=== PATIENT | female | born 1950 | race Caucasian/White ===

== ENCOUNTER 2018-07-05 10:56 | Emergency (ER) | payer MEDICARE, OTHER ==
[2018-07-05] MEDS ORDERED: SODIUM CHLORIDE 0.9% 1000ML 1,000 ML IV ONE (11:12)
[2018-07-05] MEDS ORDERED: ONDANSETRON HCL 4 MG/2 ML VIAL ONE (11:27)
[2018-07-05 11:39] LABS: BASOPHILS % (AUTO) 0.9 % (0.0-5.0); EOSINOPHILS % (AUTO) 3.5 % (0.0-8.0); HEMATOCRIT 41.6 % (36-48); MEAN CORPUSCULAR HEMOGLOBIN 32.3 pg (27.0-33.0); MEAN CORPUSCULAR HGB CONC 33.9 g/dL (32.0-36.0); MEAN CORPUSCULAR VOLUME 95.2 fL (79-99); MONOCYTES % (AUTO) 9.6 % (3.0-13.0); PLATELET COUNT (AUTO) 197 K/uL (130-400); RED BLOOD CELL COUNT(AUTO) 4.37 MIL/uL (4.00-5.50); RED CELL DISTRIBUTION WIDTH 12.2 % (11.0-15.5); WHITE BLOOD COUNT (AUTO) 9.3 K/uL (4.8-10.8)
[2018-07-05 11:46] LABS: CREATININE 1.2 mg/dL (0.5-1.5); POTASSIUM 3.7 mmol/L (3.5-5.1)
[2018-07-05 11:50] LABS: ALBUMIN 4.1 g/dL (3.5-5.0); TOTAL PROTEIN, SERUM 7.8 g/dL (6.0-8.3)
[2018-07-05 12:29] LABS: APPEARANCE,URINE Cloudy (CLEAR); BILIRUBIN,URINE Moderate (NEGATIVE); COLOR,URINE Dark Yellow (YELLOW); GLUCOSE, URINE (UA) Negative (NEGATIVE); KETONES,URINE 15 mg/dL (NEGATIVE); LEUKOCYTE ESTERASE ,URINE Trace (NEGATIVE); NITRATE,URINE Negative (NEGATIVE); OCCULT BLOOD,URINE Negative (NEGATIVE); PH,URINE 5.5 (5.0-8.0); PROTEIN,URINE POS 1+ (NEGATIVE)
[2018-07-05] MEDS ORDERED: IOHEXOL-350 75 ML VIAL IV ONE (12:45)
[2018-07-05 13:09] LABS: BACTERIA,URINE Rare /HPF (None Seen); MUCUS,URINE Moderate LPF (None Seen); RBC,URINE 0-1 /HPF (0-1); SQUAMOUS EPITHELIAL CELL,UR Rare /HPF (0-2); WBC,URINE 0-1 /HPF (0-1)
== END 2018-07-05 15:18 | disposition home or self-care (01) ==
LOC: EDH 10:56
DX: K52.9 Noninfective gastroenteritis and colitis, unspecified (principal); E07.9 Disorder of thyroid, unspecified; I25.2 Old myocardial infarction; Z88.6 Allergy status to analgesic agent; Z87.891 Personal history of nicotine dependence
CPT/HCPCS: 36415; 74177; 80053; 81001; 83690; 85025; 96361; 96374; 99285; J2405; J7030; Q9967

== ENCOUNTER 2019-08-30 22:40 | Inpatient (IN) | payer MEDICARE ==
[2019-08-30] MEDS ORDERED: ONDANSETRON HCL 4 MG/2 ML VIAL ONE (23:50)
[2019-08-30] MEDS ORDERED: SODIUM CHLORIDE 0.9% 1000ML 1,000 ML IV ONE (23:50)
[2019-08-30 23:59] LABS: BASOPHILS % (AUTO) 0.8 % (0.0-5.0); EOSINOPHILS % (AUTO) 1.8 % (0.0-8.0); HEMATOCRIT 40.4 % (36-48); LYMPHOCYTES % (AUTO) 20.2 % (21.0-51.0); MEAN CORPUSCULAR VOLUME 94.1 fL (79-99); MONOCYTES % (AUTO) 8.4 % (3.0-13.0); NEUTROPHILS % (AUTO) 68.8 % (40.0-77.0); PLATELET COUNT (AUTO) 251 K/uL (130-400); RED BLOOD CELL COUNT(AUTO) 4.29 MIL/uL (4.00-5.50); RED CELL DISTRIBUTION WIDTH 12.3 % (11.0-15.5); WHITE BLOOD COUNT (AUTO) 9.2 K/uL (4.8-10.8)
[2019-08-31 00:09] LABS: POTASSIUM 3.7 mmol/L (3.5-5.1)
[2019-08-31 00:13] LABS: ALBUMIN 4.1 g/dL (3.5-5.0); BILIRUBIN,TOTAL 0.6 mg/dL (0.2-1.0); TOTAL PROTEIN, SERUM 7.8 g/dL (6.0-8.3)
[2019-08-31] MEDS ORDERED: LIDOCAINE HCL 2% VISCOUS 15 ML UDCUP ONE ×2 (00:45→01:11)
[2019-08-31] MEDS ORDERED: HYDRALAZINE HCL 20 MG/ML VIAL IV PRN (01:15)
[2019-08-31] MEDS ORDERED: SODIUM CHLORIDE 0.9% 1000ML 1,000 ML IV ONE (02:34)
[2019-08-31 03:00] VITALS: BP 150/78
[2019-08-31] MEDS ORDERED: THYR15TA PO (03:29)
--- NOTE | 2019-08-31 04:10 | NUR ---
DENIED ANY ABDOMINAL PAIN PT ASSESSED. ALERT ORIENTED X 4. DENIED ANY NAUSEA NOR VOMITING NOR ANY ABDOMINAL PAIN. NRUSE FROM ED GAVE REPORT, HE MENTIONED NGT OUTPUT IN ER CONNECTED TO LOW INTERMITTENT SUCTION WAS 1900 ML GREENISH OUTPUT. MAINTAINED PT ON NGT CONNECTED TO LOW INTERMITTENT SUCTION, NO OUTPUT YET AT THIS POINT. COMFORT MEASURES RENDERED
[2019-08-31 04:54] LABS: APPEARANCE,URINE Turbid (CLEAR); BILIRUBIN,URINE Negative (NEGATIVE); COLOR,URINE Yellow (YELLOW); GLUCOSE, URINE (UA) Negative (NEGATIVE); KETONES,URINE Trace mg/dL (NEGATIVE); LEUKOCYTE ESTERASE ,URINE Trace (NEGATIVE); NITRATE,URINE Negative (NEGATIVE); OCCULT BLOOD,URINE Negative (NEGATIVE); PH,URINE 8.5 (5.0-8.0); PROTEIN,URINE POS 1+ mg/dL (NEGATIVE); UROBILINOGEN,URINE 0.2 mg/dL (0.2-1.0)
[2019-08-31 05:11] LABS: AMORPHOUS SEDIMENT,UR Many /LPF (None Seen); BACTERIA,URINE Few /HPF (None Seen); RBC,URINE None Seen /HPF (0-1); SQUAMOUS EPITHELIAL CELL,UR Moderate /HPF (0-2); WBC,URINE 0-1 /HPF (0-1)
[2019-08-31 08:00] VITALS: BP 155/77
[2019-08-31 08:18] LABS: ALBUMIN 3.5 g/dL (3.5-5.0); BILIRUBIN,TOTAL 0.7 mg/dL (0.2-1.0); CREATININE 0.8 mg/dL (0.5-1.5); POTASSIUM 3.3 mmol/L (3.5-5.1); TOTAL PROTEIN, SERUM 6.7 g/dL (6.0-8.3)
[2019-08-31] MEDS ORDERED: METRONIDAZOLE 500MG/100ML BAG 100 ML ONE (08:38)
[2019-08-31] MEDS ORDERED: METRONIDAZOLE 500 MG TABLET PO SCH (09:00)
--- NOTE | 2019-08-31 09:17 | NUR ---
DR. BLUNT PAGED RE; SBO; PENDING CALL BACK
[2019-08-31] MEDS: FAMOTIDINE/PF 20 MG/2 ML VIAL IV SCH ×2 (10:01→20:57)
[2019-08-31] MEDS: SODIUM CHLORIDE 0.9% 1000ML 1,000 ML IV SCH ×2 (10:01→21:15)
--- NOTE | 2019-08-31 10:17 | NUR ---
DC PLAN PER PATIENT, STATES SHE IS INDEPENDENT, LIVES WITH SPOUSE, NO PROVIDER, NO EQUIPMENT, AND FEELS SAFE TO RETURN HOME. Addendum: 08/31/19 at 1017 by JEREL THOMAS RN CM Amended: Links added.
[2019-08-31 12:00] VITALS: BP 143/80
--- NOTE | 2019-08-31 13:00 | NUR ---
PA; DANIEL;DR. BLUNT'S PA PAGED; PENDING CALLBACK
[2019-08-31 16:00] VITALS: BP 153/79
--- NOTE | 2019-08-31 17:09 | NUR ---
DR. BLUNT CALLED BACK ORDERS ENTERED
[2019-08-31] MEDS: ONDANSETRON HCL 4 MG/2 ML VIAL IV PRN (18:22)
[2019-08-31 20:00] VITALS: BP 153/65
[2019-08-31] MEDS ORDERED: BISACODYL 10 MG SUPP.RECT RC SCH (21:00)
[2019-09-01] VITALS: BP 155/70
[2019-09-01] MEDS: SODIUM CHLORIDE 0.9% 1000ML 1,000 ML IV SCH (02:35)
--- NOTE | 2019-09-01 03:49 | NUR ---
stools patient had 2 brown formed stools and can pass gas now.
[2019-09-01 04:00] VITALS: BP 148/74
[2019-09-01 07:50] LABS: BASOPHILS % (AUTO) 0.7 % (0.0-5.0); EOSINOPHILS % (AUTO) 1.6 % (0.0-8.0); HEMATOCRIT 39.8 % (36-48); MEAN CORPUSCULAR HGB CONC 34.3 g/dL (32.0-36.0); MEAN CORPUSCULAR VOLUME 96.1 fL (79-99); MONOCYTES % (AUTO) 6.9 % (3.0-13.0); NEUTROPHILS % (AUTO) 69.8 % (40.0-77.0); PLATELET COUNT (AUTO) 213 K/uL (130-400); RED BLOOD CELL COUNT(AUTO) 4.14 MIL/uL (4.00-5.50); RED CELL DISTRIBUTION WIDTH 11.9 % (11.0-15.5); WHITE BLOOD COUNT (AUTO) 9.4 K/uL (4.8-10.8)
[2019-09-01 08:00] VITALS: BP 170/80
--- NOTE | 2019-09-01 08:15 | NUR ---
bp 170;s pain medications given. states was also gaggin pt feeling nauseated, ng-tube adjusted, now draining, and zofran given iv.
[2019-09-01] MEDS ORDERED: BISACODYL 10 MG SUPP.RECT RC SCH (08:30)
[2019-09-01] MEDS ORDERED: LEVOTHYROXINE 100 MCG VIAL IV SCH (09:00)
[2019-09-01] MEDS: LACTATED RINGERS 1000ML 1,000 ML IV SCH ×2 (09:50→22:00)
[2019-09-01] MEDS: FAMOTIDINE/PF 20 MG/2 ML VIAL IV SCH ×2 (09:51→21:59)
[2019-09-01] MEDS: KETOROLAC TROMETHAMINE 15MG/ML IV PRN (09:55)
--- NOTE | 2019-09-01 12:08 | NUR ---
ATTEMPTED TO NOTIFY DR. BLUNT FOR OUTPUT NO CALL ANSWER PENDING CALL BACK.
[2019-09-01] MEDS ORDERED: LACTULOSE 20 GM/30 ML UDCUP PO SCH (15:15)
[2019-09-01] MEDS ORDERED: MAGNESIUM CITRATE 296 ML SOLUTION PO ONE (15:15)
[2019-09-01] MEDS ORDERED: MAGNESIUM HYDROXIDE 30 ML/UDCUP PO SCH (15:15)
[2019-09-01] MEDS: ONDANSETRON HCL 4 MG/2 ML VIAL IV PRN (15:51)
[2019-09-01 16:00] VITALS: BP 163/82
--- NOTE | 2019-09-01 16:10 | NUR ---
bp 170's, pt up walking on hallway. will reassess bp.
[2019-09-01 19:20] VITALS: BP 144/74
[2019-09-02 00:47] VITALS: BP 150/71
[2019-09-02] MEDS: KETOROLAC TROMETHAMINE 15MG/ML IV PRN (03:57)
[2019-09-02 04:20] VITALS: BP 163/78
[2019-09-02 05:26] LABS: HEMATOCRIT 35.2 % (36-48); MEAN CORPUSCULAR HEMOGLOBIN 32.9 pg (27.0-33.0); MEAN CORPUSCULAR HGB CONC 34.9 g/dL (32.0-36.0); MEAN CORPUSCULAR VOLUME 94.1 fL (79-99); PLATELET COUNT (AUTO) 232 K/uL (130-400); RED BLOOD CELL COUNT(AUTO) 3.74 MIL/uL (4.00-5.50); RED CELL DISTRIBUTION WIDTH 12.3 % (11.0-15.5); WHITE BLOOD COUNT (AUTO) 7.2 K/uL (4.8-10.8)
[2019-09-02 05:32] LABS: CREATININE 0.8 mg/dL (0.5-1.5); POTASSIUM 3.7 mmol/L (3.5-5.1)
--- NOTE | 2019-09-02 06:32 | NUR ---
MD Rounds Dr. Caruso in, seen & examined pt, updated of status, made aware pt had multiple BM, ordered to d/c NGT, done, well tolerated by the pt & to start CLD. MD advise the pt to continue with her current LOC to prevent recurrence of SBO, verbalizes understanding. Pt made aware cleared by dr. Caruso for d/c on his standpoint.
[2019-09-02] MEDS: LACTATED RINGERS 1000ML 1,000 ML IV SCH (06:34)
[2019-09-02 07:00] VITALS: BP 149/71
[2019-09-02] MEDS ORDERED: FAMOTIDINE 20MG TAB 20 MG TAB PO SCH (09:35)
[2019-09-02 11:00] VITALS: BP 155/80
--- NOTE | 2019-09-02 15:45 | NUR ---
discharged now using teach back.dc inst. given with family member present,verbalizes understanding of all inst. given rx transmitted electronically to Angela in [place] and list of local drs. given. no c/o of any discomfort today and as per dr. tijerina does not to follow up with him.
[2019-09-03] MEDS ORDERED: ARMOUR THYROID 15 MG PO SCH (06:30)
== END 2019-09-02 15:50 | disposition home or self-care (01) | DRG 390 ==
LOC: EDH 22:40 → EDHIP 08-31 01:15 → 3DH 08-31 02:39
PROVIDERS: ADMIT Internal Medicine; ATTEND Internal Medicine
PROC: 0D9670Z Drainage of Stomach with Drainage Device, Via Natural or Artificial Opening (ICD-10-PCS; principal; 2019-09-01)
DX: K56.600 Partial intestinal obstruction, unspecified as to cause (principal); E03.9 Hypothyroidism, unspecified; E86.0 Dehydration; I25.2 Old myocardial infarction; Z87.891 Personal history of nicotine dependence; Z90.710 Acquired absence of both cervix and uterus; Z88.5 Allergy status to narcotic agent; Z88.8 Allergy status to other drugs, medicaments and biological substances
CPT/HCPCS: 36415; 74018; 74176; 80048; 80053; 81001; 82550; 83690; 84484; 85025; 85027; 93005; G0378; J0360; J1885; J2405; J3490; J7030; J7120

== ENCOUNTER → 2024-02-22 | Outpatient (CLI) | payer MEDICARE ==
[~2024-02-22] MED LIST: THYR15TA PO
== END | disposition home or self-care (01) ==
LOC: SHCH 11:51
PROVIDERS: ATTEND Internal Medicine Cardiovascular Disease
DX: I65.23 Occlusion and stenosis of bilateral carotid arteries (principal)
CPT/HCPCS: 93880

== ENCOUNTER → 2024-03-14 | Outpatient (CLI) | payer MEDICARE ==
[2024-03-14 12:53] LABS: CHOLESTEROL 123 mg/dL (<200); HDL CHOLESTEROL 68 mg/dL (35-85); LDL DIRECT 57 mg/dL (0-99); TRIGLYCERIDES 43 mg/dL (30-200)
== END | disposition home or self-care (01) ==
LOC: LAB 09:18
PROVIDERS: ATTEND Internal Medicine Cardiovascular Disease
DX: E78.5 Hyperlipidemia, unspecified (principal)
CPT/HCPCS: 36415; 80061

== ENCOUNTER → 2024-12-08 | Emergency (ER) | payer MEDICARE ==
[~2024-12-08] VITALS: Ht 165.1 cm; Wt 52.2 kg
[~2024-12-08] MED LIST changes: +ATOR20TA65 PO; +GUAI100L96 PO; +LOSA25TA41 PO; +OMEP40CA21 PO; +OSEL75 PO; +THYR30TA2 PO
[2024-12-08] MEDS: ondanSETRON 4MG INJ IVP STA (12:05)
[2024-12-08] MEDS: 0.9%NACL 1000ML 1,000 ML IV STA (12:06)
[2024-12-08 12:14] LABS: BASOPHILS # (AUTO) 0.02 K/uL (0.00-0.20); BASOPHILS % (AUTO) 0.5 % (0.0-5.0); HEMATOCRIT 37.9 % (36-48); IMMATURE GRANULOCYTE ABSOLUTE 0.02 K/uL (0-1); LYMPHOCYTES % (AUTO) 23.1 % (21.0-51.0); MEAN CORPUSCULAR HEMOGLOBIN 32.2 pg (27.0-33.0); MEAN CORPUSCULAR HGB CONC 35.1 g/dL (32.0-36.0); MEAN CORPUSCULAR VOLUME 91.8 fL (79-99); MONOCYTES # (AUTO) 0.8 K/uL (0.1-1.0); MONOCYTES % (AUTO) 19.4 % (3.0-13.0); NEUTROPHILS # (AUTO) 2.3 K/uL (1.8-7.7); NEUTROPHILS % (AUTO) 56.5 % (40.0-77.0); PLATELET COUNT (AUTO) 144 K/uL (130-400); RED BLOOD CELL COUNT(AUTO) 4.13 MIL/uL (4.00-5.50); RED CELL DISTRIBUTION WIDTH 11.5 % (11.0-15.5); WHITE BLOOD COUNT (AUTO) 4.1 K/uL (4.8-10.8)
[2024-12-08 12:25] LABS: CREATININE 0.9 mg/dL (0.5-1.0); POTASSIUM 3.4 mmol/L (3.5-5.1)
[2024-12-08 12:30] LABS: ALBUMIN 3.7 g/dL (3.5-5.0); BILIRUBIN,DIRECT 0.2 mg/dL (0.0-0.3); TOTAL PROTEIN, SERUM 7.5 g/dL (6.0-8.3)
[2024-12-08 12:46] LABS: BAND NEUTROPHILS % (MANUAL) 19 % (0-2); LYMPHOCYTES % (MANUAL) 21 % (22-44); MAN.DIFF COMMENT-IMPRESSION MANUAL DIFFERENTIAL; MONOCYTES % (MANUAL) 9 % (2-9); PLATELET MORPHOLOGY COMMENT ADEQUATE; SEGMENTED NEUTROPHILS % 51 % (40-70); TOTAL CELLS COUNTED 100; WBC MORPHOLOGY CONSISTENT W/DIFF
--- NOTE | 2024-12-08 12:49 | HMCIMG ---
CHEST 1VW HISTORY: Cough COMPARISON: None FINDINGS: A frontal projection of the chest was obtained. Mild bilateral pulmonary infiltrates are seen may be related to mild pulmonary vascular congestion with possible superimposed pneumonitis. The heart is borderline enlarged. Degenerative changes are seen. No evidence of aortic calcification is seen. IMPRESSION: 1. Bilateral pulmonary infiltrates are seen suggestive of pulmonary vascular congestion with possible superimposed pneumonitis.
--- NOTE | 2024-12-08 13:09 | ERN ---
ED Note History of Present Illness Stated Complaint: NVD Chief Complaint: Nausea,Vomiting,Diarrhea Time Seen by MD: 11:27 Time Seen by Midlevel: 11:30 Dictation: 74-year-old female with a history of hypothyroidism, cholesterol and hypertension coming in with complaints of cough, fever and vomiting, right lower quadrant pain for the last couple of days. Patient complaining of dysuria. Spouse also states the patient has had altered mentation on and off for the last year however has a worsened in the last four days. Has been says she has a history of a lung disease but does not know the name of it. Allergies: Coded Allergies: acetaminophen (Verified Allergy, Unknown, 08/31/19) codeine (Verified Allergy, Unknown, 08/31/19) diazepam (Verified Allergy, Unknown, 08/31/19) Home Meds Active Scripts Guaifenesin (Robitussin Syrp) 100 Mg/5 Ml Syrp, 10 ML PO QID for cough for 3 Days, #120 ML 0 Refills Prov:RACHEL AWAD INK PRINTER 12/08/24 Oseltamivir Phosphate (Tamiflu) 75 Mg Cap, 75 MG PO BID for 5 Days, #10 CAP Prov:RACHEL AWAD INK PRINTER 12/08/24 Reported Medications Thyroid,Pork ([place] Thyroid) 15 Mg Tablet, 15 MG PO DAILY, TAB 08/31/19 Past Medical History Past Medical History: High Cholesterol, Hypertension, Hypothyroid Surgical History: Other Review of System Dictation Constitutional: Positive for fever,chills, Eyes: Negative for injury, pain,redness, and discharge ENT: Negative for injury,pain or swelling Cardiovascular: Negative for chest pain, palpitations, and edema Respiratory: Negative for shortness of breath, cough, and wheezing, Abdomen/GI: Complaining of right lower quadrant pain, nausea, vomiting, and constipation Back: Negative for injury and pain : Negative for injury, bleeding and discharge MS/Extremity: Negative for injury and deformity Skin: Negative for rash, and discoloration Neuro: Negative for headache, weakness, numbness, tingling, and seizure Psych: Negative for suicide ideation, homicidal ideation, and hallucinations Review of Systems: was completed Initial Vital Sign VS Vital Signs Date Time Temp Pulse Resp B/P (MAP) Pulse Ox O2 Delivery O2 Flow Rate FiO2 12/08/24 11:27 99.1 87 16 167/84 96 Room Air 0 12/08/24 11:27 21 Physical Exam Dictation General: awake, alert, NAD Head/Face: Normocephalic, atraumatic Eyes: PERRL, EOMI, vision at baseline ENT: oral cavity clear, TMs clear, no signs of infection Neck: Trachea midline, supple, no nuchal rigidity Cardiovascular: RRR, normal S1/S2, No MRGs, no JVD Respiratory: CTAB, no respiratory distress, No rales or wheezes Abdomen: Soft, non-tender, non-distended, normal bowel sounds, no guarding or rebound. Skin: Warm, dry, normal turgor, no rash MS/Extremity: Pulses equal, no cyanosis, neurovascular intact, FROM Neuro: COAx3, GCS 14, strength 5/5, CN 2-12 intact, normal cerebellar exam, normal gait, Psych: Normal behavior, mood, and affect normal Results (Laboratory/Radiology) Laboratory/Radiology Laboratory Tests Test 12/08/24 11:53 12/08/24 13:14 12/08/24 13:28 White Blood Count 4.1 K/uL (4.8-10.8) L Red Blood Count 4.13 MIL/uL (4.00-5.50) Hemoglobin 13.3 g/dL (12.0-16.0) Hematocrit 37.9 % (36-48) Mean Corpuscular Volume 91.8 fL (79-99) Mean Corpuscular Hemoglobin 32.2 pg (27.0-33.0) Mean Corpuscular Hemoglobin Concent 35.1 g/dL (32.0-36.0) Red Cell Distribution Width 11.5 % (11.0-15.5) Platelet Count 144 K/uL (130-400) Mean Platelet Volume 11.1 fL (7.5-10.5) H Immature Granulocyte % (Auto) 0.5 % (0-1) Neutrophils (%) (Auto) 56.5 % (40.0-77.0) Lymphocytes (%) (Auto) 23.1 % (21.0-51.0) Monocytes (%) (Auto) 19.4 % (3.0-13.0) H Eosinophils (%) (Auto) 0.0 % (0.0-8.0) Basophils (%) (Auto) 0.5 % (0.0-5.0) Neutrophils # (Auto) 2.3 K/uL (1.8-7.7) Lymphocytes # (Auto) 1.0 K/uL (1.0-4.8) Monocytes # (Auto) 0.8 K/uL (0.1-1.0) Eosinophils # (Auto) 0.00 K/uL (0.00-0.70) Basophils # (Auto) 0.02 K/uL (0.00-0.20) Absolute Immature Granulocyte (auto 0.02 K/uL (0-1) Segmented Neutrophils % 51 % (40-70) Band Neutrophils % 19 % (0-2) H Lymphocytes % (Manual) 21 % (22-44) L Monocytes % (Manual) 9 % (2-9) Nucleated Red Blood Cells 0.0 % (0.0-0.19) Differential Comment MANUAL DIFFERENTIAL White Cell Morphology Comment CONSISTENT W/DIFF Platelet Morphology Comment ADEQUATE Red Blood Cell Morphology NORMAL Sodium Level 133 mmol/L (136-145) L Potassium Level 3.4 mmol/L (3.5-5.1) L Chloride Level 94 mmol/L (101-111) L Carbon Dioxide Level 29 mmol/L (21-32) Blood Urea Nitrogen 16 mg/dL (7-18) Creatinine 0.9 mg/dL (0.5-1.0) Glomerular Filtration Rate Calc 68 mL/min (>90) Random Glucose 91 mg/dL (70-105) Total Calcium 8.3 mg/dL (8.5-10.1) L Total Bilirubin 1.0 mg/dL (0.2-1.0) Direct Bilirubin 0.2 mg/dL (0.0-0.3) Aspartate Amino Transf (AST/SGOT) 35 U/L (10-37) Alanine Aminotransferase (ALT/SGPT) 15 U/L (12-78) Alkaline Phosphatase 60 U/L (50-136) Troponin I High Sensitivity 31 ng/L (4-50) Total Protein 7.5 g/dL (6.0-8.3) Albumin 3.7 g/dL (3.5-5.0) Lipase 35 U/L (16-77) Urine Color LIGHT-YELLOW (YELLOW) Urine Appearance CLEAR (CLEAR) Urine pH 6.0 (5.0-8.0) Urine Specific [place] 1.010 (1.001-1.031) Urine Protein 30 mg/dL (NEGATIVE) H Urine Glucose (UA) NEGATIVE mg/dL (NEGATIVE) Urine Ketones 10 mg/dL (NEGATIVE) H Urine Occult Blood SMALL (NEGATIVE) H Urine Nitrate NEGATIVE (NEGATIVE) Urine Bilirubin NEGATIVE mg/dL (NEGATIVE) Urine Urobilinogen 0.2 mg/dL (0.2-1.0) Urine Leukocyte Esterase NEGATIVE Anthony/uL Urine RBC 6-10 /HPF (0-1) H Urine WBC 0-1 /HPF (0-1) Urine Squamous Epithelial Cells RARE /HPF (0-2) Urine Bacteria None /HPF (None Seen) Influenza Type A Antigen Positive For Type A Influenza Type B Antigen Negative For Type B SARS-CoV-2, RNA, NAAT NEGATIVE SARS CoV-2 Labs Reviewed?: Yes X-RAY Comment: [place] [id number] IMAGING REPORT Signed PATIENT: DALILA WATSON V MR#: [id number] : 1950 SEX: F AGE: 74 LOCATION: [facility] ORDER 1230 STATUS: [facility] REPORT#: [id number] SERVICE 1229 REASON: cough ORDERING PHYSICIAN: RACHEL AWAD NP PROCEDURE: CXR1VW - CHEST 1VW CHEST 1VW HISTORY: Cough COMPARISON: None FINDINGS: A frontal projection of the chest was obtained. Mild bilateral pulmonary infiltrates are seen may be related to mild pulmonary vascular congestion with possible superimposed pneumonitis. The heart is borderline enlarged. Degenerative changes are seen. No evidence of aortic calcification is seen. IMPRESSION: 1. Bilateral pulmonary infiltrates are seen suggestive of pulmonary vascular congestion with possible superimposed pneumonitis. DICTATED BY: FRANCK WALLIS MD DATE: 12/08/241246 ELECTRONICALLY SIGNED BY: FRANCK WALLIS MD DATE: 12/08/241248 ED Course ED Course Orders Procedure Category Date Status Time Cbc With Differential LAB 12/08/24 Complete 11:33 Basic Metabolic Panel LAB 12/08/24 Complete 11:33 Urinalysis Profile LAB 12/08/24 Complete 11:33 Lipase LAB 12/08/24 Complete 11:33 Hepatic Function Panel LAB 12/08/24 Complete 11:33 Troponin I High LAB 12/08/24 Complete Sensitivity 11:33 0.9%Nacl 1000ml (Ns PHA 12/08/24 Complete 1000ml) 11:33 Ondansetron 4mg Inj PHA 12/08/24 Complete (Zofran 4mg Inj) 11:33 Chest 1vw RAD 12/08/24 Resulted 12:29 Covid Rna Naat LAB 12/08/24 Complete 12:29 Manual Differential LAB 12/08/24 Complete 11:53 Hydralazine 20mg Inj PHA 12/08/24 Complete (Apresoline 20mg In 12:59 Influenza Type A & B, LAB 12/08/24 Complete Rapid 12:29 Ipratropium 0.5 PHA 12/08/24 Complete Mg/2.5 Ml Inh 14:26 Guaifenesin-Dm PHA 12/08/24 Complete 200/20mg 10ml 14:26 Dexamethasone 4mg/Ml PHA 12/08/24 Complete 1ml Vial (Dexametha 14:30 Current Medications Medications (Trade) Dose Ordered Sig/[place]oto Route PRN Reason Start Time Stop Time Status Last Admin Dose Admin Dexamethasone Sodium Phosphate (dexaMETHasone 4MG/ML 1ML VIAL) 4 mg ONCE STAT IV 12/08/24 14:30 12/08/24 14:32 DC 12/08/24 14:49 Guaifenesin/ Dextromethorphan (RobiTUSSin DM 200/20MG 10ML) 10 ml ONCE STAT PO 12/08/24 14:26 12/08/24 14:28 DC 12/08/24 14:50 Hydralazine HCl (APRESOLine 20MG INJ) 10 mg ONCE STAT IV 12/08/24 12:59 12/08/24 13:10 DC 12/08/24 13:17 Ipratropium [place] (AtrovENT UD) 0.5 MG ONCE STAT IH 12/08/24 14:26 12/08/24 14:28 DC 12/08/24 14:50 Ondansetron HCl (zoFRAN 4MG INJ) 4 mg ONCE STAT IVP 12/08/24 11:33 12/08/24 11:35 DC 12/08/24 12:05 Sodium Chloride 1,000 ml @ 1,000 mls/hr Q1H STAT IV 12/08/24 11:33 12/08/24 12:32 DC 12/08/24 12:06 Vital Signs Date Time Temp Pulse Resp B/P (MAP) Pulse Ox O2 Delivery O2 Flow Rate FiO2 12/08/24 14:26 98.4 72 16 174/72 98 Room Air* 0 21 12/08/24 11:27 99.1 81 16 167/84 98 Room Air* 0 21 12/08/24 11:27 99.1 87 16 167/84 96 Room Air 0 Medical Decision Making MDM MDM: 74-year-old female with a history of hypothyroidism, cholesterol and hypertension coming in with complaints of cough, fever and vomiting, right lower quadrant pain for the last couple of days. Patient complaining of dysuria. Spouse also states the patient has had altered mentation on and off for the last year however has a worsened in the last four days. Has been says she has a history of a lung disease but does not know the name of it.CBC shows no leukocytosis, no anemia, no thrombocytopenia. Chemistry shows mild hyponatremia and mild hypokalemia. Sodium is 133 and potassium is 3.4. Normal kidney function. No transaminitis, lipase within normal range. Troponin is negative. UA shows no evidence of urine tract infection. Patient has a positive for flu A. X-ray shows infiltrates suggestive of pulmonary vascular congestion with possible superimposed pneumonitis. However patient in its while states that she has a history of lung scarring this could be related. Patient received fluids running nebulizer treatment, antitussive, and steroids. Patient states feels better and we will be discharged home on Tamiflu and cough medication. Case was discussed with the ER MD. Gann for patient to be discharge history are stable not tachycardic or tachypneic or hypoxic. Differential diagnosis: Influenza, COVID more viral syndrome, pneumonia, viral gastroenteritis Rationale: Tests considered and ordered secondary to shared decision making include: Previous outside records reviewed: Old ER visits. Risk of complication and/or morbidity or mortality of patient management: None Medications-Per medication reconciliation Need for hospitalization: Patient does not meet criteria for hospitalization. Need for emergency major/minor surgery: No There are no social concerns with this patient. Prescription drug management Prescriptions will include symptomatic care Patient's prior external medical records from other ER visits were reviewed by me as indicated. Prior testing and results from previous visits were reviewed. Prior tests were taken into account with medical decision making and resource utilization, independent historian/historians were used to obtain complete medical history. I independently interpreted the test that were performed, results were reviewed by me and considered findings on radiology if ordered. Medical management and examination interpretation discussions were had by me with other qualified healthcare professionals as indicated for the patient's care. DX & DISP Disposition: Discharge Departure Impression: Primary Impression: Influenza A Condition: Stable Scripts Guaifenesin (Robitussin Syrp) 100 Mg/5 Ml Syrp 10 ML PO QID for cough for 3 Days, #120 ML 0 Refills Prov: RACHEL AWAD NP 12/08/24 Oseltamivir Phosphate (Tamiflu) 75 Mg Cap 75 MG PO BID for 5 Days, #10 CAP Prov: RACHEL AWAD INK PRINTER 12/08/24 Additional Instructions: Complaints and dose of Tamiflu, follow up with PCP in 1-2 days, return to the ER as needed. You can control fever body aches with Tylenol or Motrin over-the-co unter. Referrals: SHERIE MORRIS MD (PCP) Time of Disposition: 14:54 I have reviewed the case, and I agree with, Diagnosis and Plan RACHEL AWAD NP Dec 08, 2024 13:09
[2024-12-08] MEDS: hydrALAZine 20MG/ML VIAL IV STA (13:17)
[2024-12-08 13:26] LABS: ADD UA MICROSCOPIC YES; APPEARANCE,URINE CLEAR (CLEAR); BILIRUBIN,URINE NEGATIVE (NEGATIVE); COLOR,URINE LIGHT-YELLOW (YELLOW); GLUCOSE, URINE (UA) NEGATIVE (NEGATIVE); KETONES,URINE 10 mg/dL (NEGATIVE); LEUKOCYTE ESTERASE ,URINE NEGATIVE Leu/uL (NEGATIVE); NITRATE,URINE NEGATIVE (NEGATIVE); OCCULT BLOOD,URINE SMALL (NEGATIVE); PROTEIN,URINE 30 mg/dL (NEGATIVE); UROBILINOGEN,URINE 0.2 mg/dL (0.2-1.0)
[2024-12-08 13:28] LABS: MUCUS,URINE RARE LPF (None Seen); SQUAMOUS EPITHELIAL CELL,UR RARE /HPF (0-2); WBC,URINE 0-1 /HPF (0-1)
[2024-12-08 13:54] LABS: SARS-CoV-2, RNA, NAAT NEGATIVE SARS CoV-2 (NEGATIVE)
[2024-12-08 13:59] LABS: INFLUENZA TYPE B Negative For Type B (NEGATIVE)
[2024-12-08 14:23] LABS: INFLUENZA TYPE A Positive For Type A (NEGATIVE)
[2024-12-08 14:26] VITALS: BP 174/72; TEMP 98.4; O2SAT 98
[2024-12-08 14:36] VITALS: PULSE 77; RESP 20
[2024-12-08] MEDS: dexaMETHasone SOD PHOSPHATE 4 MG/ML 1ML VIAL IV STA (14:49)
[2024-12-08] MEDS: guaiFENesin-DM 200/20MG 10ML PO STA (14:50)
[2024-12-08] MEDS: IpraTROPium 0.5 MG/2.5 ML INH IH STA (14:50)
== END ==
LOC: EDH 11:25
DX: J10.1 Influenza due to other identified influenza virus with other respiratory manifestations (principal); E03.9 Hypothyroidism, unspecified; E78.00 Pure hypercholesterolemia, unspecified; I10 Essential (primary) hypertension; Z79.890 Hormone replacement therapy; Z88.5 Allergy status to narcotic agent; Z20.822 Contact with and (suspected) exposure to COVID-19; Z98.890 Other specified postprocedural states
CPT/HCPCS: 99284; 96374; 96375; 71045; 87635; 96361; 80076; 84484; 80048; 83690; 85025; 87804 ×2; 81001; 36415; 94640; J1100; J7030; J0360; J2405